=== PATIENT | female | born 1970 | race Caucasian/White ===

== ENCOUNTER 2017-09-13 11:59 | Emergency (ER) | payer OTHER ==
[~2017-09-13] VITALS: Ht 170.2 cm; Wt 84.4 kg
[~2017-09-13 11:59] MED LIST: ABILIFY5 MG ORAL; ATIVAN1 MG ORAL; CEPHALEXIN500 MG ORAL; CIPRO500 MG PO; IBUPROFEN600 MG ORAL; MACROBID 100 M100 MG ORAL; METROGEL-VAGINA70 G1 VAGIN; NITROFURANTOIN100 M2 ORAL; PROZAC10 MG ORAL; TAMIFLU75 MG ORAL; TRAZODONE HCL150 MG ORAL
[2017-09-13] MEDS ORDERED: Phenazopyridine 200mg tab ORAL ONE (12:45)
[2017-09-13 13:03] LABS: APPEARANCE,URINE CLEAR; BILIRUBIN, URINE NEGATIVE (NEGATIVE); GLUCOSE, URINE (UA) NEGATIVE (NEGATIVE); KETONES,URINE NEGATIVE (NEGATIVE); LEUKOCYTE ESTERASE ,URINE 1+ (NEGATIVE); NITRITE,URINE NEGATIVE (NEGATIVE); PH,URINE 7 (4.5-8.0); PROTEIN,URINE NEGATIVE (NEGATIVE); UROBILINOGEN,URINE 1 MG/DL (0.0-1.0)
[2017-09-13 13:08] LABS: COLOR,URINE YELLOW
--- NOTE | 2017-09-13 13:24 | Emergency Room Report ---
History of Present Illness General Chief Complaint: Female Urogenital Problems Source: Patient Present Illness HPI 47-year-old female presents emergency department complaining of dysuria and urinary frequency 3 days. Patient denies fevers or chills. Patient denies vaginal discharge. Pain is 8 out of 10 in severity burning and lower abdominal distention feeling. Patient states she feels as though her bladder is really full however when she goes to the bathroom nothing comes out. Denies CP, Palpitations, LOC, AMS, dizziness, Changes in Vision, Sensation, paresthesias, or a sudden severe headache. Allergies: Coded Allergies: No Known Allergies (Unverified , 10/24/12) Patient History Past Medical History: see triage record Past Surgical History: none Pertinent Family History: none Last Menstrual Period: irregular period Immunizations: UTD Reviewed Nursing Documentation: PMH: Agreed, PSxH: Agreed Nursing Documentation-PMH Past Medical History: No History, Except For History Of Psychiatric Problem: Yes - Anxiety Review of Systems All Other Systems: negative except mentioned in HPI Physical Exam Vital Signs Date Time Temp Pulse Resp B/P (MAP) Pulse Ox O2 Delivery O2 Flow Rate FiO2 09/13/17 12:26 98.4 87 16 108/75 94 Room Air 98.4 Sp02 EP Interpretation: reviewed, normal General Appearance: no apparent distress, alert, GCS 15, non-toxic Head: normocephalic, atraumatic ENT: hearing grossly normal, normal voice Neck: full range of motion Respiratory: lungs clear, normal breath sounds, speaking full sentences Cardiovascular #1: regular rate, rhythm Gastrointestinal: normal bowel sounds, non tender, soft Genitourinary: normal inspection, no CVA tenderness Musculoskeletal: back normal, gait/station normal, normal range of motion, non- tender Neurologic: alert, oriented x3, responsive, motor strength/tone normal, sensory intact, normal gait, speech normal, grossly normal Psychiatric: judgement/insight normal Skin: normal color, no rash, warm/dry, well hydrated Lymphatic: no adenopathy Medical Decision Making PA Attestation Dr. Mooney is my supervising Physician whom patient management has been discussed with. Diagnostic Impression: Primary Impression: Dysuria Additional Impression: Urinary frequency ER Course 47-year-old female presents emergency department complaining of dysuria and urinary frequency 3 days. Patient denies fevers or chills. Patient denies vaginal discharge. Pain is 8 out of 10 in severity burning and lower abdominal distention feeling. Patient states she feels as though her bladder is really full however when she goes to the bathroom nothing comes out. Denies CP, Palpitations, LOC, AMS, dizziness, Changes in Vision, Sensation, paresthesias, or a sudden severe headache. Ddx considered but are not limited to UTi , Pyelo, STI, Stone, Cystitis Vital signs: are WNL, pt. is afebrile H&PE are most consistent with possible UTI or cystitis will do UA.. no evidence to suggest acute abdomen at this time. no CVA tenderness. ORDERS: - UA labs are attached : --Most indicative of contamination: presence of equal amounts of bacteria and squamous cells, no elevation in inflammatory markers, nitrite negative. ED INTERVENTIONS: -Pyridium PO DISCHARGE: At this time pt. is stable for d/c to home. Will provide printed patient care instructions, and any necessary prescriptions. Care plan and follow up instructions have been discussed with the patient prior to discharge. Labs Test 09/13/17 12:29 Urine Color Yellow Urine Appearance Clear Urine pH 7 (4.5-8.0) Urine Specific [place] 1.010 (1.005-1.035) Urine Protein Negative (NEGATIVE) Urine Glucose (UA) Negative (NEGATIVE) Urine Ketones Negative (NEGATIVE) Urine Occult Blood Negative (NEGATIVE) Urine Nitrite Negative (NEGATIVE) Urine Bilirubin Negative (NEGATIVE) Urine Urobilinogen 1 MG/DL (0.0-1.0) Urine Leukocyte Esterase 1+ (NEGATIVE) Urine RBC 0-2 /HPF (0 - 2) Urine WBC 2-4 /HPF (0 - 2) Urine Squamous Epithelial Cells Few /LPF (NONE/OCC) Urine Bacteria Occasional /HPF (NONE) Urine Mucus Few /LPF (NONE/OCC) Urine HCG, Qualitative Negative (NEGATIVE) Last Vital Signs Date Time Temp Pulse Resp B/P (MAP) Pulse Ox O2 Delivery O2 Flow Rate FiO2 09/13/17 12:26 98.4 87 16 108/75 94 Room Air 98.4 Disposition: HOME, SELF-CARE Condition: Stable Scripts Phenazopyridine Hcl* (PYRIDIUM*) 200 Mg Tablet 200 MG ORAL THREE TIMES A DAY for 5 Days, #15 TAB 0 Refills Prov: Jesica Salcedo 09/13/17 Referrals: [facility],REFERRING (PCP) Patient Instructions: Dysuria, Urinary Frequency Additional Instructions: Take medications as directed. Pyridium will cause your urine to change color (Red/[place]), this is a normal side effect of the medication. Follow up with a Primary Care Provider in 3-5 days, even if your symptoms have resolved. --Please review list of primary care clinics, if you do not already have a primary care provider Return sooner to ED if new symptoms occur, or current symptoms become worse. - Please note that this Emergency Department Report was dictated using [employer] claims analyst technology software, occasionally this can lead to erroneous entry secondary to interpretation by the dictation equipment. Jesica Salcedo Sep 13, 2017 13:24
[2017-09-13] MEDS ORDERED: PHENAZOPYRIDIN200 MG ORAL (13:47)
[2017-09-13 14:01] VITALS: BP 116/70
== END 2017-09-13 14:00 | disposition home or self-care (01) ==
LOC: EMR 13:10
DX: R30.0 Dysuria (principal); R35.0 Frequency of micturition; F41.9 Anxiety disorder, unspecified
CPT/HCPCS: 81003; 81025; 99283

== ENCOUNTER 2018-05-15 12:57 | Emergency (ER) | payer OTHER ==
[~2018-05-15] VITALS: Ht 172.7 cm; Wt 73.9 kg
[~2018-05-15 12:57] MED LIST changes: +PHENAZOPYRIDIN200 MG ORAL
[2018-05-15 13:22] VITALS: BP 119/78
[2018-05-15 13:29] LABS: APPEARANCE,URINE SLIGHTLY CLOUDY; BILIRUBIN, URINE NEGATIVE (NEGATIVE); GLUCOSE, URINE (UA) NEGATIVE (NEGATIVE); KETONES,URINE 1+ (NEGATIVE); LEUKOCYTE ESTERASE ,URINE 2+ (NEGATIVE); NITRITE,URINE NEGATIVE (NEGATIVE); PH,URINE 5 (4.5-8.0); PROTEIN,URINE 1+ (NEGATIVE); UROBILINOGEN,URINE 4 MG/DL (0.0-1.0)
--- NOTE | 2018-05-15 13:29 | Emergency Room Report ---
History of Present Illness General Chief Complaint: Female Urogenital Problems Source: Patient Present Illness HPI 48-year-old female patient presents ER complaining of burning with urination and scabies exposure. Patient reports running pain for the past 2 days. Reports frequency and urgency during this time. Denies hematuria. Denies vaginal discharge. Denies flank pain, abdominal pain, fever, vomiting. Also reports itching on her body. Denies rash. Reports that she visited friends house where "everyone has scabies" and she would like to be treated prophylactically. Denies rash currently. Denies fever, chest pain, shortness breath, vomiting, abdominal pain. Allergies: Coded Allergies: No Known Allergies (Unverified , 10/24/12) Patient History Past Medical History: see triage record Last Menstrual Period: 7 yrs ago Reviewed Nursing Documentation: PMH: Agreed; PSxH: Agreed Nursing Documentation-PMH Past Medical History: No History, Except For History Of Psychiatric Problem: No - depression, anxiety Review of Systems All Other Systems: negative except mentioned in HPI Physical Exam Vital Signs Date Time Temp Pulse Resp B/P (MAP) Pulse Ox O2 Delivery O2 Flow Rate FiO2 05/15/18 13:00 99.1 95 18 119/78 99 Room Air Sp02 EP Interpretation: reviewed, normal General Appearance: well appearing, no apparent distress, alert, GCS 15, non- toxic Head: normocephalic, atraumatic Eyes: bilateral eye normal inspection, bilateral eye PERRL ENT: hearing grossly normal, normal pharynx, no angioedema, normal voice, uvula midline, moist mucus membranes Neck: full range of motion Respiratory: lungs clear, normal breath sounds, no rhonchi, no respiratory distress, no accessory muscle use, no wheezing, speaking full sentences Cardiovascular #1: regular rate, rhythm, no edema Gastrointestinal: non tender, soft, no mass, non-distended, no guarding, no rebound Genitourinary: no CVA tenderness Musculoskeletal: back normal, digits/nails normal, gait/station normal, normal range of motion, non-tender Neurologic: alert, oriented x3, responsive, motor strength/tone normal, sensory intact Psychiatric: mood/affect normal Skin: no rash Lymphatic: no adenopathy Medical Decision Making PA Attestation Dr. Ordonez is my supervising Physician whom patient management has been discussed with. Diagnostic Impression: Primary Impression: Urinary tract infection Additional Impression: Scabies exposure ER Course Pt presents to ED c/o pain with urination and possible scabies exposure. 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 VITAL SIGNS are WNL, patient is afebrile. Ordered UA. ER COURSE UA results show many WBCS, indicate UTI, will treat with abx. If concern for STI, followup with STI clinic for testing and treatment. Denies STI concern. Patient is resting comfortably in chair, nontoxic appearing, in no acute distress. Patient states they feel better and is ready to go home. Patient requesting ibuprofen for pain symptoms. ER precautions given. patient with scabies medication. No current signs of rash or infection. ER precautions given. Wash all clothing and bedding in high heat. DISCHARGE -Rx provided for Bactrim. -Rx provided for Permethrin -Rx provided for Ibuprofen Patient is stable for discharge. Patient resting comfortably, in no acute distress, nontoxic appearing, talking without difficulty. Will provide with patient care instructions and any necessary prescriptions. Patient understands and agrees to treatment plan. Patient encouraged to drink plenty of fluids. Patient to take medication as instructed. Care plan and follow-up instructions provided. Patient questions asked and answered. Reports understanding and agreement to treatment plan. Patient instructed to follow-up with primary care provider in 3 - 5 days. ER precautions given. Patient instructed to return to ER immediately for any new or worsening of symptoms. Including but not limited to fever, abdominal pain , intractable vomiting. - Please note that this Emergency Department Report was dictated using [employer] internship technology software, occasionally this can lead to erroneous entry secondary to interpretation by the dictation equipment. Labs Test 05/15/18 13:15 Urine Color Yellow Urine Appearance Slightly cloudy Urine pH 5 (4.5-8.0) Urine Specific [place] 1.025 (1.005-1.035) Urine Protein 1+ (NEGATIVE) Urine Glucose (UA) Negative (NEGATIVE) Urine Ketones 1+ (NEGATIVE) Urine Blood 2+ (NEGATIVE) Urine Nitrite Negative (NEGATIVE) Urine Bilirubin Negative (NEGATIVE) Urine Urobilinogen 4 MG/DL (0.0-1.0) Urine Leukocyte Esterase 2+ (NEGATIVE) Urine RBC 2-4 /HPF (0 - 2) Urine WBC 30-40 /HPF (0 - 2) Urine Squamous Epithelial Cells Occasional /LPF Urine Bacteria Few /HPF (NONE) Urine Mucus Moderate /LPF (NONE/OCC) Last Vital Signs Date Time Temp Pulse Resp B/P (MAP) Pulse Ox O2 Delivery O2 Flow Rate FiO2 05/15/18 13:22 99.1 95 18 119/78 99 Room Air Disposition: HOME, SELF-CARE Condition: Stable Scripts Ibuprofen* (MOTRIN*) 600 Mg Tablet 600 MG ORAL Q8H PRN for For Pain, #30 TAB 0 Refills Prov: Wally Lara 05/15/18 Permethrin* (ELIMITE*) 60 Gm Cream..g. 1 APPLIC TOPIC ONCE, #60 GM 0 Refills Apply cream from head to toe; leave on for 8-14 hours before washing off with water; may reapply in 1 week if live mites appear. Prov: Wally Lara 05/15/18 Trimethoprim/Sulfamethoxazole 160/800* (BACTRIM DS TABLET*) 1 Each Tablet 1 TAB ORAL TWICE A DAY for 7 Days, #14 TAB Prov: Wally Lara 05/15/18 Patient Instructions: Scabies, Pediatric, Urinary Tract Infection Additional Instructions: Followup with primary care provider and followup with and./or OBGYN. Drink plenty of fluids. Take medications as directed. Pyridium has SE of turning urine orange. Patient questions asked and answered. ER precautions given, patient instructed to return to ER immediately for any new or worsening of symptoms. Wally Lara May 15, 2018 13:29
[2018-05-15 13:46] LABS: COLOR,URINE YELLOW
[2018-05-15] MEDS ORDERED: PERMETHRIN60 GM TOPIC (13:50)
[2018-05-15] MEDS ORDERED: BACTRIM DS TAB1 EAC1 ORAL (13:50)
[2018-05-15] MEDS ORDERED: IBUPROFEN600 MG ORAL (14:08)
[2018-05-15 14:36] VITALS: BP 119/78
== END 2018-05-15 14:37 | disposition home or self-care (01) ==
LOC: EMR 13:35
DX: N39.0 Urinary tract infection, site not specified (principal); Z20.89 Contact with and (suspected) exposure to other communicable diseases
CPT/HCPCS: 81003; 87086; 87181; 99283

== ENCOUNTER 2018-05-17 11:59 | Emergency (ER) | payer OTHER ==
[~2018-05-17] VITALS: Ht 172.7 cm; Wt 73.9 kg
[~2018-05-17 11:59] MED LIST changes: +BACTRIM DS TAB1 EAC1 ORAL; +PERMETHRIN60 GM TOPIC
[2018-05-17] MEDS ORDERED: PERMETHRIN60 GM TOPIC (12:28)
[2018-05-17] MEDS ORDERED: BENADRYL25 MG ORAL (12:28)
[2018-05-17] MEDS ORDERED: CLARITIN10 M1 ORAL (12:28)
--- NOTE | 2018-05-17 12:28 | Emergency Room Report ---
History of Present Illness General Chief Complaint: Skin Rash/Abscess Source: Patient Present Illness HPI 48-year-old female patient presents ER requesting refill of scabies medication. Patient was seen here 2 days ago and discharged home with scabies medication for prophylactic use. Reports rash does not appear since that time however she use of lotion and needs a refill of it to repeat the treatment in 1 week. Reports was all her clothes and bedding. Denies other acute symptoms. Denies fever, chest pain, shortness of breath. Allergies: Coded Allergies: No Known Allergies (Unverified , 10/24/12) Patient History Past Medical History: see triage record Last Menstrual Period: age 40 Now: No Reviewed Nursing Documentation: PMH: Agreed; PSxH: Agreed Nursing Documentation-PMH Past Medical History: No Stated History Review of Systems All Other Systems: negative except mentioned in HPI Physical Exam Vital Signs Date Time Temp Pulse Resp B/P (MAP) Pulse Ox O2 Delivery O2 Flow Rate FiO2 05/17/18 12:09 98.2 85 18 110/76 98 Room Air Sp02 EP Interpretation: reviewed, normal General Appearance: well appearing, no apparent distress, alert, GCS 15, non- toxic Head: normocephalic, atraumatic Eyes: bilateral eye normal inspection, bilateral eye PERRL ENT: hearing grossly normal, normal pharynx, no angioedema, normal voice, uvula midline, moist mucus membranes Neck: full range of motion Respiratory: lungs clear, normal breath sounds, no rhonchi, no respiratory distress, no accessory muscle use, no wheezing, speaking full sentences Cardiovascular #1: regular rate, rhythm, no edema Musculoskeletal: back normal, digits/nails normal, gait/station normal, normal range of motion, non-tender Neurologic: alert, oriented x3, responsive, motor strength/tone normal, sensory intact Psychiatric: mood/affect normal Skin: no rash Medical Decision Making PA Attestation Dr. Mooney is my supervising Physician whom patient management has been discussed with. Diagnostic Impression: Primary Impression: Scabies exposure ER Course Pt. presents to the ED requesting refill of scabies medication. Ddx considered but are not limited to atopic dermatitis, bug bite, urticaria, allergic reaction. Vital signs: are WNL, pt. is afebrile ER COURSE: PE benign, no rash noted. will provide patient with refill of permethrin cream. Do not scratch, apply cool compresses to affected area. Take Claritin during the day and Benadryl at night for itching symptoms. Followup [facility] PCP and request referral to derm. ER precautions given. DISCHARGE: -Rx given for Benadryl for pruritis. SE may cause drowsiness. -Rx given for permethrin -Rx given for Claritin At this time pt. is stable for d/c to home. Patient resting comfortably, in no acute distress, nontoxic appearing. Care plan and follow up instructions have been discussed with the patient prior to discharge. Patient provided with printed patient care instructions, and any necessary prescriptions. Patient instructed to follow-up with primary care provider in 3 - 5 days. Patient questions asked and answered. Patient reports understanding and agreement to treatment plan. ER precautions given. Patient instructed to return to ER immediately for any new or worsening of symptoms including but not limited to increasing SOB, persistent fever. - Please note that this Emergency Department Report was dictated using [employer]oc[employer] tram operator technology software, occasionally this can lead to erroneous entry secondary to interpretation by the dictation equipment. Last Vital Signs Date Time Temp Pulse Resp B/P (MAP) Pulse Ox O2 Delivery O2 Flow Rate FiO2 05/17/18 12:09 98.2 85 18 110/76 98 Room Air Disposition: HOME, SELF-CARE Condition: Stable Scripts Diphenhydramine Hcl* (BENADRYL*) 25 Mg Capsule 25 MG ORAL Q6H PRN for Itching, #30 CAP Prov: Wally Lara 05/17/18 Loratadine (CLARITIN) 10 Mg Tab.rapdis 10 MG ORAL DAILY, #30 TAB Prov: Wally Lara 05/17/18 Permethrin* (ELIMITE*) 60 Gm Cream..g. 1 APPLIC TOPIC ONCE, #60 GM 0 Refills Apply cream from head to toe; leave on for 8-14 hours before washing off with water; may reapply in 1 week if live mites appear. Prov: Wally Lara 05/17/18 Patient Instructions: Scabies, Pediatric Additional Instructions: Followup with primary care provider in 3 -5 days. Request referral to dermatology as needed. Do not scratch or itch. Apply cool compresses to affected area. Wash all clothes and bedding. Take medications as directed. SE Benadryl drowsiness, do not take prior to drinking, driving, operating heavy machinery. Take Claritin during the day and Benadryl at night for itching symptoms. Patient questions asked and answered. ER precautions given, patient instructed to return to ER immediately for any new or worsening of symptoms. [facility] [place] [facility] Wally Lara May 17, 2018 12:28
[2018-05-17 13:22] VITALS: BP 110/76
[2018-05-17 13:27] VITALS: BP 110/76
== END 2018-05-17 13:29 | disposition home or self-care (01) ==
LOC: EMR 12:35
DX: R21 Rash and other nonspecific skin eruption (principal); Z20.89 Contact with and (suspected) exposure to other communicable diseases
CPT/HCPCS: 99283

== ENCOUNTER 2018-05-22 09:09 | Emergency (ER) | payer OTHER ==
[~2018-05-22] VITALS: Ht 162.6 cm; Wt 68.0 kg
[~2018-05-22 09:09] MED LIST changes: +BENADRYL25 MG ORAL; +CLARITIN10 M1 ORAL
[2018-05-22] MEDS ORDERED: METROGEL-VAGINA70 G1 VAGIN (09:45)
[2018-05-22 09:52] VITALS: BP_SYST 118; BP_SYST 121; BP_DIAS 76
--- NOTE | 2018-05-22 09:54 | Emergency Room Report ---
History of Present Illness General Chief Complaint: Female Urogenital Problems Source: Patient Present Illness HPI Patient presents reporting that she feels that she has vaginitis Patient reports that she has ongoing itching in her genital region Mild discharge denies any abdominal pain denies any pelvic pain Denies any fevers or chills denies any flank pain Denies any chest pain or shortness of breath patient reports that she is sexually active only with her Denies any rash However the patient was here recently with treatment for scabies Allergies: Coded Allergies: No Known Allergies (Unverified , 10/24/12) Patient History Past Medical History: see triage record Pertinent Family History: none Now: No Reviewed Nursing Documentation: PMH: Agreed; PSxH: Agreed Nursing Documentation-PMH Past Medical History: No Stated History Review of Systems All Other Systems: negative except mentioned in HPI Physical Exam Vital Signs Date Time Temp Pulse Resp B/P (MAP) Pulse Ox O2 Delivery O2 Flow Rate FiO2 05/22/18 09:15 97.9 88 18 118/76 96 Room Air Sp02 EP Interpretation: reviewed, normal General Appearance: well appearing, no apparent distress Head: normocephalic, atraumatic Eyes: bilateral eye PERRL, bilateral eye EOMI ENT: normal pharynx Neck: full range of motion, supple Respiratory: lungs clear Cardiovascular #1: regular rate, rhythm Gastrointestinal: non tender, soft Genitourinary: no CVA tenderness Musculoskeletal: normal inspection, back normal Neurologic: alert, oriented x3, responsive Skin: normal color, no rash Lymphatic: no adenopathy Medical Decision Making Diagnostic Impression: Primary Impression: vaginitis ER Course Patient provides clinical history and report likely consistent with vaginitis, patient was recently treated for UTI, the microbiology appears to be sensitive to all medications Given some of the vaginal discharge patient also treated for vaginitis Referral was made for women[facility] clinic for more extensive pelvic exam and Pap smear and more extensive testing as needed Last Vital Signs Date Time Temp Pulse Resp B/P (MAP) Pulse Ox O2 Delivery O2 Flow Rate FiO2 05/22/18 09:15 97.9 88 18 118/76 96 Room Air Status: unchanged Disposition: HOME, SELF-CARE Condition: Stable Scripts Metronidazole* (METROGEL-VAGINAL*) 70 Gm Gel.w.appl 1 APPL VAGIN EVERY 12 HOURS for 7 Days, #70 GM Prov: Jac France DO 05/22/18 Referrals: [facility],REFERRING (PCP) [facility] Patient Instructions: Vaginitis Additional Instructions: Patient is provided with the discharge instructions notified to follow up with primary doctor in the next 2-3 days otherwise return to the er with any worsening symptoms. Please note that this report is being documented using [employer] technology. This can lead to erroneous entry secondary to incorrect interpretation by the dictating instrument. Jac France DO May 22, 2018 09:54
== END 2018-05-22 09:52 | disposition home or self-care (01) ==
LOC: EMR 09:20
DX: N76.0 Acute vaginitis (principal)
CPT/HCPCS: 99283

== ENCOUNTER 2018-07-25 13:58 | Emergency (ER) | payer OTHER ==
[~2018-07-25] VITALS: Ht 172.7 cm; Wt 73.9 kg
[~2018-07-25 13:58] MED LIST changes: +COLACE100 MG ORAL; +FLUCONAZOLE100 MG ORAL
--- NOTE | 2018-07-25 14:11 | NUR ---
ED Nurse Note: patient came in from home c/o flu like symptoms, sorethoat, generalized body aches, headache x1 week. a/o x4, ambulatory.
[2018-07-25 14:12] VITALS: BP 120/75
--- NOTE | 2018-07-25 14:39 | Emergency Room Report ---
History of Present Illness General Chief Complaint: Flu Like Symptoms Source: Patient Present Illness HPI Patient is a 48-year-old female presented after increased productive cough. Patient reportedly had symptoms for approximate 1 week. She reports having increased congestion as well as sore throat associated with a increased productive cough. Patient is a cigarette smoker she states she is smokes approximately 1 pack a day recently been normally smokes 2 packs a day. She denies any fever. She reportedly has onset of symptoms for 1 week. She denies any leg pain or swelling.. Allergies: Coded Allergies: No Known Allergies (Unverified , 10/24/12) Patient History Past Medical History: see triage record Last Menstrual Period: 6 YEARS Now: No Reviewed Nursing Documentation: PMH: Agreed; PSxH: Agreed Nursing Documentation-PMH Past Medical History: No Stated History Hx Gastrointestinal Problems: Yes - constipation Review of Systems All Other Systems: negative except mentioned in HPI Physical Exam Vital Signs Date Time Temp Pulse Resp B/P (MAP) Pulse Ox O2 Delivery O2 Flow Rate FiO2 07/25/18 14:03 98.8 86 17 120/75 95 Room Air Sp02 EP Interpretation: reviewed, normal General Appearance: normal inspection, well appearing, no apparent distress, alert, GCS 15, non-toxic Head: atraumatic ENT: normal ENT inspection, hearing grossly normal, normal voice Neck: normal inspection, full range of motion, supple, no bony tend Respiratory: normal inspection, no respiratory distress, no retraction, wheezing Cardiovascular #1: regular rate, rhythm, no edema Gastrointestinal: normal inspection, normal bowel sounds, non tender, soft, no guarding, no hernia Genitourinary: no CVA tenderness Musculoskeletal: normal inspection, back normal, normal range of motion Neurologic: normal inspection, alert, oriented x3, responsive, account solutions analyst III-XII nml as tested, motor strength/tone normal, speech normal Psychiatric: normal inspection, judgement/insight normal, mood/affect normal Skin: normal inspection, normal color, no rash Medical Decision Making Diagnostic Impression: Primary Impression: Bronchitis ER Course Patient presented for cough. Differential diagnosis include was not limited to pneumonia, bronchitis, influenza among others. Patient will patient has a benign exam and does not appear to require any further laboratory testing at this time. Patient was noted to have symptoms for 1 week. She was unlikely to benefit from Tamiflu.Chest x-ray 1 view interpreted by me showed normal cardiac size without evident infiltrate.The patient is advised to follow up with primary care doctor in 1-2 days. Patient is advised to return if any worsening condition or if any changes in status that are concerning. This report is dictated with [employer] site technician software which may occasionally lead to discrepancies related to use of this software. Chest X-Ray Diagnostic Results Chest X-Ray Diagnostic Results : Chest X-Ray Ordered: Yes # of Views/Limited/Complete: 1 View Indication: Chest Pain EP Interpretation: Yes PA Xray: Interpretation reviewed Interpretation: no consolidation Impression: No acute disease Electronically Signed by: Electronically signed by Dr. Mike Moore M.D. Last Vital Signs Date Time Temp Pulse Resp B/P (MAP) Pulse Ox O2 Delivery O2 Flow Rate FiO2 07/25/18 14:14 86 17 Room Air 07/25/18 14:12 98.8 120/75 95 Status: improved Disposition: HOME, SELF-CARE Condition: Stable Scripts Guaifenesin* (ADULT WAL-TUSSIN*) 100 Mg/5 Ml Liquid 5 ML ORAL Q4H, #120 ML Prov: Mike Moore MD 07/25/18 Albuterol Sulfate* (ALBUTEROL SULFATE MDI*) 8.5 Gm Hfa.aer.ad 2 PUFF INH Q4H PRN for cough/wheezing, #1 EA 0 Refills Prov: Mike Moore MD 07/25/18 Mike Moore MD Jul 25, 2018 14:39
[2018-07-25] MEDS ORDERED: Albuterol/Ipratropium 3ml neb HHN ONE (14:45)
[2018-07-25] MEDS ORDERED: ALBUTEROL SULF8.5 GM INH (14:59)
[2018-07-25] MEDS ORDERED: ADULT WAL-100 MG/5 M ORAL (14:59)
[2018-07-25 15:03] VITALS: BP 120/75
--- NOTE | 2018-07-25 15:04 | NUR ---
ED Nurse Note: patient received breathing tx, cxr done. Patient is being discharged, cleared by ERMSabine Moore ID band removed. discharge paper/instructions given, explained patient about electronic prescription sent to the designated pharmacy which address written on the instruction paper, patient verbalized understanding. patient ambulated out of ED with steady gait with all belongings.
--- NOTE | 2018-07-25 16:42 | Diagnostic Imaging Report ---
Indication: Extreme shortness of breath Technique: One view of the chest Comparison: none Findings: Lungs and pleural spaces are clear. Heart size is normal Impression: No acute process
== END 2018-07-25 15:05 | disposition home or self-care (01) ==
LOC: EMR 15:00
DX: J40 Bronchitis, not specified as acute or chronic (principal)
CPT/HCPCS: 71045; 94640; 99284; J7620

== ENCOUNTER 2019-06-11 14:08 | Emergency (ER) | payer OTHER ==
[~2019-06-11] VITALS: Ht 170.2 cm; Wt 72.6 kg
[~2019-06-11 14:08] MED LIST changes: +ADULT WAL-100 MG/5 M ORAL; +ALBUTEROL SULF8.5 GM INH
--- NOTE | 2019-06-11 14:45 | NUR ---
ED Nurse Note: Pt walked into ED c/o cough,congestion, and congestion for past week. Pt c/o of lower back pain 7/10 for a week. Pt also has a rash on mid buttocks. No acute distress.
[2019-06-11 14:50] VITALS: BP 110/77
--- NOTE | 2019-06-11 14:52 | Emergency Room Report ---
History of Present Illness General Chief Complaint: Flu Like Symptoms Source: Patient Present Illness HPI 49-year-old female presents with flulike symptoms for 1 day. She reports sore throat, body aches, cough. Denies any fever, vomiting, diarrhea, abdominal pain , headache. Also reports dysuria, low back pain, and frequent urination. Denies hematuria. Denies incontinence or saddle anesthesia. No trauma. Patient also complains of a small rash to her upper buttock area. No drainage. Complains of mild itchiness. Allergies: Coded Allergies: No Known Allergies (Unverified , 10/24/12) Patient History Past Medical History: see triage record Past Surgical History: none Pertinent Family History: none Now: No Reviewed Nursing Documentation: PMH: Agreed; PSxH: Agreed Nursing Documentation-PMH Past Medical History: No Stated History Hx Gastrointestinal Problems: Yes - constipation Review of Systems All Other Systems: negative except mentioned in HPI Physical Exam Vital Signs Date Time Temp Pulse Resp B/P (MAP) Pulse Ox O2 Delivery O2 Flow Rate FiO2 06/11/19 14:20 98.4 91 18 117/77 (90) 95 Room Air Sp02 EP Interpretation: reviewed, normal General Appearance: no apparent distress, alert, GCS 15, non-toxic Head: normocephalic, atraumatic Eyes: bilateral eye normal inspection, bilateral eye PERRL ENT: hearing grossly normal, normal pharynx, no angioedema, normal voice Neck: full range of motion, supple/symm/no masses Respiratory: chest non-tender, lungs clear, normal breath sounds, speaking full sentences Cardiovascular #1: regular rate, rhythm, no edema Cardiovascular #2: 2+ carotid (R), 2+ carotid (L), 2+ radial (R), 2+ radial (L) , 2+ dorsalis pedis (R), 2+ dorsalis pedis (L) Gastrointestinal: normal bowel sounds, non tender, soft, non-distended, no guarding, no rebound Rectal: deferred Genitourinary: normal inspection, no CVA tenderness, other - no incontinence Musculoskeletal: back normal, normal range of motion, calf tenderness, gait/ station normal, non-tender, other - no saddle anesthesia Neurologic: alert, motor strength/tone normal, oriented x3, sensory intact, responsive, speech normal Psychiatric: judgement/insight normal, memory normal, mood/affect normal, no suicidal/homicidal ideation Reflexes: 3+ bicep (R), 3+ bicep (L), 3+ tricep (R), 3+ tricep (L), 3+ knee (R) , 3+ knee (L) Skin: rash, other - small area of dryness and erythema to upper left buttock, no evidence of abscess Lymphatic: no adenopathy Medical Decision Making PA Attestation Dr. Mckinney is my supervising physician whom patient management and care has been discussed with. Diagnostic Impression: Primary Impression: viral syndrome Additional Impression: Dermatitis ER Course Pt. presents to the ED c/o flu like symptoms along with dysuria and a rash. Ddx considered but are not limited to influenza, viral syndrome, pneumonia, bronchitis, dermatitis, herpes zoster, cellulitis, UTI, pyelonephritis, nephrolithiasis. Vital signs: are WNL, pt. is afebrile H&PE are most consistent with viral syndrome and dermatitis. ORDERS: UA shows no evidence of UTI. Other diagnoses are clinical. ED INTERVENTIONS: None required at this time. DISCHARGE: At this time pt. is stable for d/c to home. Will provide printed patient care instructions, and prescriptions for Phenergan DM for her cough, Motrin for low back pain, and hydrocortisone cream for her rash. Care plan and follow up instructions have been discussed with the patient prior to discharge. Return precautions given. Laboratory Tests Test 06/11/19 14:55 Urine Color Yellow Urine Appearance Clear Urine pH 5 (4.5-8.0) Urine Specific [place] 1.015 (1.005-1.035) Urine Protein Negative (NEGATIVE) Urine Glucose (UA) Negative (NEGATIVE) Urine Ketones Negative (NEGATIVE) Urine Blood 1+ (NEGATIVE) H Urine Nitrite Negative (NEGATIVE) Urine Bilirubin Negative (NEGATIVE) Urine Urobilinogen Normal MG/DL (0.0-1.0) Urine Leukocyte Esterase Negative (NEGATIVE) Urine RBC 0-2 /HPF (0 - 2) Urine WBC 0-2 /HPF (0 - 2) Urine Squamous Epithelial Cells Occasional /LPF Urine Bacteria None /HPF (NONE) Urine HCG, Qualitative Negative (NEGATIVE) Last Vital Signs Date Time Temp Pulse Resp B/P (MAP) Pulse Ox O2 Delivery O2 Flow Rate FiO2 06/11/19 14:20 98.4 91 18 117/77 (90) 95 Room Air Disposition: HOME, SELF-CARE Condition: Stable Scripts D-Methorphan Hb/Prometh Hcl* (PROMETHAZINE-DM SYRUP*) 118 Ml Syrup 5 ML ORAL Q4H PRN for For Cough, #120 ML 0 Refills Prov: Soheila Small N. P.A. 06/11/19 Hydrocortisone 1% Oint (Hydrocortisone 1% Oint*) Y Oint 28 GM TP BID for 14 Days, #1 GM Prov: Soheila Small. P.ALex 06/11/19 Ibuprofen* (MOTRIN*) 600 Mg Tablet 600 MG ORAL Q6H PRN for For Pain, #30 TAB Prov: Soheila Small N. P.ALex 06/11/19 Soheila Small P.ALex Jun 11, 2019 14:52
[2019-06-11 15:17] LABS: APPEARANCE,URINE CLEAR; BILIRUBIN, URINE NEGATIVE (NEGATIVE); COLOR,URINE YELLOW; GLUCOSE, URINE (UA) NEGATIVE (NEGATIVE); KETONES,URINE NEGATIVE (NEGATIVE); LEUKOCYTE ESTERASE ,URINE NEGATIVE (NEGATIVE); NITRITE,URINE NEGATIVE (NEGATIVE); PH,URINE 5 (4.5-8.0); PROTEIN,URINE NEGATIVE (NEGATIVE); UROBILINOGEN,URINE NORMAL MG/DL (0.0-1.0)
[2019-06-11] MEDS ORDERED: IBUPROFEN600 MG ORAL (16:04)
[2019-06-11] MEDS ORDERED: HYDROCORTISONE28 G2 TP (16:04)
[2019-06-11] MEDS ORDERED: PROMETHAZINE-D118 ML ORAL (16:04)
[2019-06-11 16:20] VITALS: BP 128/74
--- NOTE | 2019-06-11 16:20 | NUR ---
ER DISCHARGE NOTE: Patient is cleared to be discharged per ERMD, pt is aox4, on room air, with stable vital signs. pt was given dc and prescription instructions, pt was able to verbalize understanding, pt id band removed. pt is able to ambulate with steady gait. pt took all belongings. 3 presc given.
== END 2019-06-11 16:20 | disposition home or self-care (01) ==
LOC: EMR 14:45
DX: B34.9 Viral infection, unspecified (principal); L30.9 Dermatitis, unspecified
CPT/HCPCS: 81003; 81025; Z7502; 99283

== ENCOUNTER 2019-12-06 13:59 | Emergency (ER) | payer OTHER ==
[~2019-12-06] VITALS: Ht 170.2 cm; Wt 77.1 kg
[~2019-12-06 13:59] MED LIST changes: +HYDROCORTISONE28 G2 TP; +PROMETHAZINE-D118 ML ORAL
[2019-12-06 14:39] VITALS: BP 112/72
--- NOTE | 2019-12-06 14:39 | NUR ---
ED Nurse Note: Patient walked into ED from home c/o burning and itchiness while voiding, frequent urinations, back pain for 1 month. patient is alert awake x4 ambulatory steady gait, breathing unlabored and even, speaking in full sentences.
[2019-12-06] MEDS ORDERED: Fluconazole 150mg tab ORAL ONE (15:15)
[2019-12-06] MEDS ORDERED: Cephalexin 500mg cap ORAL ONE (15:15)
--- NOTE | 2019-12-06 15:26 | Emergency Room Report ---
History of Present Illness General Chief Complaint: Female Urogenital Problems Source: Patient Present Illness HPI 49-year-old female with no significant past medical history here complaining of 1 month of urinary frequency and urgency and lower back pain however denies flank pain, nausea vomiting, fever and chills. Patient also complains of vaginal discharge and reports she often gets BV and yeast infection however request MetroGel instead of metronidazole. Is also requesting Motrin for back pain. Is afebrile and vital signs within normal limits. Has not taken medication for symptom relief. Denies chest pain, shortness of breath, headache and dizziness. Allergies: Coded Allergies: No Known Allergies (Unverified , 10/24/12) COVID-19 Screening Contact w/high risk pt: No Recent Travel to affected area: No Experienced COVID-19 symptoms?: No COVID-19 Testing performed TAP OUT OPERATOR: No Patient History Past Medical History: see triage record Past Surgical History: none Pertinent Family History: none Now: No Immunizations: UTD Reviewed Nursing Documentation: PMH: Agreed; PSxH: Agreed Nursing Documentation-PMH Past Medical History: No History, Except For Hx Gastrointestinal Problems: Yes - constipation History Of Psychiatric Problem: Yes - anxiety, Review of Systems All Other Systems: negative except mentioned in HPI Physical Exam Vital Signs Date Time Temp Pulse Resp B/P (MAP) Pulse Ox O2 Delivery O2 Flow Rate FiO2 12/06/19 14:39 98.4 85 17 112/72 (85) 96 Room Air Sp02 EP Interpretation: reviewed, normal General Appearance: no apparent distress, alert, GCS 15, non-toxic Head: normocephalic, atraumatic Eyes: bilateral eye normal inspection, bilateral eye PERRL ENT: hearing grossly normal, normal pharynx, no angioedema, normal voice Neck: full range of motion, supple/symm/no masses Respiratory: chest non-tender, lungs clear, normal breath sounds, speaking full sentences Cardiovascular #1: regular rate, rhythm, no edema Gastrointestinal: normal bowel sounds, non tender, soft, non-distended, no guarding, no rebound Genitourinary: no CVA tenderness Musculoskeletal: back normal Neurologic: alert, motor strength/tone normal, oriented x3, sensory intact, responsive, speech normal Psychiatric: judgement/insight normal, memory normal, mood/affect normal, no suicidal/homicidal ideation Skin: no rash Lymphatic: no adenopathy Medical Decision Making PA Attestation All my diagnosis and treatment plans were reviewed ad discussed with my supervising physician Dr. Moore Diagnostic Impression: Primary Impression: UTI (urinary tract infection) Additional Impression: Vaginitis ER Course 49-year-old female with no significant past medical history here complaining of 1 month of urinary frequency and urgency and lower back pain however denies flank pain, nausea vomiting, fever and chills. Patient also complains of vaginal discharge and reports she often gets BV and yeast infection however request MetroGel instead of metronidazole. Is also requesting Motrin for back pain. Is afebrile and vital signs within normal limits. Has not taken medication for symptom relief. Denies chest pain, shortness of breath, headache and dizziness. Ddx considered but are not limited to: UTI, pyelonephritis, urinary incontinence , prolapsed bladder Vital signs: are WNL, pt. is afebrile H&PE are most consistent with: UTI, vaginitis ORDERS: UA, urine cx, Keflex, Motrin, MetroGel, ED INTERVENTIONS: Diflucan, Motrin, Keflex DISCHARGE: At this time pt. is stable for d/c to home. Will provide printed patient care instructions, and any necessary prescriptions. Care plan and follow up instructions have been discussed with the patient prior to discharge. Patient take medication as directed, follow primary doctor, worsening symptoms return to the emergency room Last Vital Signs Date Time Temp Pulse Resp B/P (MAP) Pulse Ox O2 Delivery O2 Flow Rate FiO2 12/06/19 14:39 98.4 85 17 112/72 96 Room Air Disposition: HOME, SELF-CARE Condition: Stable Scripts Metronidazole* (METROGEL-VAGINAL*) 70 Gm Gel.w.appl 1 APPL VAGIN EVERY 12 HOURS, #70 GM Prov: BestelimoghaOnel storey PA 12/06/19 Ibuprofen* (MOTRIN*) 600 Mg Tablet 600 MG ORAL THREE TIMES A DAY, #30 TAB Prov: BestelimogOnel archer PA 12/06/19 Cephalexin* (KEFLEX*) 500 Mg Capsule 500 MG ORAL EVERY 12 HOURS for 7 Days, #14 CAP 0 Refills Prov: Onel Iniguez PA 12/06/19 Patient Instructions: Vaginitis, Urinary Tract Infection Additional Instructions: Take medication as directed, follow-up primary doctor, if worsening symptoms return to emergency room Onel Iniguez Dec 06, 2019 15:26
[2019-12-06] MEDS ORDERED: METROGEL-VAGINA70 G1 VAGIN (15:28)
[2019-12-06] MEDS ORDERED: IBUPROFEN600 M1 ORAL (15:28)
[2019-12-06] MEDS ORDERED: CEPHALEXIN500 MG ORAL (15:28)
[2019-12-06 15:32] VITALS: BP 112/72
[2019-12-06 15:32] LABS: APPEARANCE,URINE VERY CLOUDY; BILIRUBIN, URINE NEGATIVE (NEGATIVE); COLOR,URINE PALE YELLOW; GLUCOSE, URINE (UA) NEGATIVE (NEGATIVE); KETONES,URINE NEGATIVE (NEGATIVE); LEUKOCYTE ESTERASE ,URINE 3+ (NEGATIVE); NITRITE,URINE POSITIVE (NEGATIVE); PH,URINE 6.5 (4.5-8.0); PROTEIN,URINE NEGATIVE (NEGATIVE); UROBILINOGEN,URINE 1 MG/DL (0.0-1.0)
--- NOTE | 2019-12-06 15:35 | NUR ---
ED Nurse Note: Pt cleared by health care Provider for discharge. DC instructions/prescription was given and explained to pt and verbalized understanding of teachings. All medical deviecs such as ID band removed. Pt is AAO x4, ambulatory and left with all personal belongings.
== END 2019-12-06 15:30 | disposition home or self-care (01) ==
LOC: EMR 15:25
DX: N39.0 Urinary tract infection, site not specified (principal); N76.0 Acute vaginitis; F41.9 Anxiety disorder, unspecified
CPT/HCPCS: 81003; 81025; 87086; 87181; Z7502; 99283

== ENCOUNTER 2020-01-22 10:11 | Emergency (ER) | payer OTHER ==
[~2020-01-22] VITALS: Ht 172.7 cm; Wt 75.3 kg
[~2020-01-22 10:11] MED LIST changes: +IBUPROFEN600 M1 ORAL
--- NOTE | 2020-01-22 10:48 | NUR ---
ED Nurse Note: Pt ambulated to ED from home d/t vaginal with clear dischange and foul odor, dysuria with burning sensation going on for a week. Pt is AOx4, VSS, on RA, afebrile on triage. Placed on bed.
--- NOTE | 2020-01-22 10:50 | NUR ---
ED Nurse Note: ERMD at bedside.
[2020-01-22 11:01] VITALS: BP 143/93
--- NOTE | 2020-01-22 11:01 | NUR ---
ED Nurse Note: urine sent to labs.
[2020-01-22 11:16] LABS: APPEARANCE,URINE CLEAR; BILIRUBIN, URINE NEGATIVE (NEGATIVE); COLOR,URINE PALE YELLOW; GLUCOSE, URINE (UA) NEGATIVE (NEGATIVE); KETONES,URINE NEGATIVE (NEGATIVE); LEUKOCYTE ESTERASE ,URINE NEGATIVE (NEGATIVE); NITRITE,URINE NEGATIVE (NEGATIVE); PH,URINE 6 (4.5-8.0); PROTEIN,URINE NEGATIVE (NEGATIVE); UROBILINOGEN,URINE NORMAL MG/DL (0.0-1.0)
[2020-01-22] MEDS ORDERED: Azithromycin 250mg tab ORAL ONE (11:30)
[2020-01-22] MEDS ORDERED: metroNIDAZOLE 500mg tab ORAL ONE (11:30)
[2020-01-22] MEDS ORDERED: Fluconazole 150mg tab ORAL ONE (11:30)
[2020-01-22] MEDS ORDERED: Lidocaine 1% MPF 10mg/ml 5ml INJ ONE (11:30)
[2020-01-22 12:24] VITALS: BP 146/90
--- NOTE | 2020-01-22 12:24 | NUR ---
ER DISCHARGE NOTE: Patient is cleared to be discharged per ERMD, pt is aox4, on room air, with stable vital signs. pt was given dc and prescription instructions, pt was able to verbalize understanding, pt id band removed. pt is able to ambulate with steady gait. pt took all belongings.
--- NOTE | 2020-01-22 14:38 | Emergency Room Report ---
History of Present Illness General Chief Complaint: Female Urogenital Problems Source: Patient Present Illness HPI Patient presents emergency department today complaining of vaginal discharge. Patient states that she is concerned she might have an STD. She denies any fever nausea vomiting or chills. She does not want a pelvic exam. No other complaints are noted. Symptoms noted to be moderate. No other modifying factors. No other associated signs and symptoms. No other complaints were noted. Allergies: Coded Allergies: No Known Allergies (Unverified , 10/24/12) COVID-19 Screening Contact w/high risk pt: No Recent Travel to affected area: No Experienced COVID-19 symptoms?: No COVID-19 Testing performed ENAMEL APPLIER: No Patient History Past Medical History: none Past Surgical History: none Pertinent Family History: none Social History: Denies: smoking, alcohol use, drug use Last Menstrual Period: no periods since age 37 Reviewed Nursing Documentation: PMH: Agreed; PSxH: Agreed Nursing Documentation-PMH Past Medical History: No History, Except For Hx Gastrointestinal Problems: Yes - constipation History Of Psychiatric Problem: Yes - Anxiety, PTSD Review of Systems All Other Systems: negative except mentioned in HPI Physical Exam Vital Signs Date Time Temp Pulse Resp B/P (MAP) Pulse Ox O2 Delivery O2 Flow Rate FiO2 01/22/20 10:31 97.7 81 14 143/93 (110) 99 Room Air Sp02 EP Interpretation: reviewed, normal General Appearance: normal inspection, well appearing, no apparent distress, alert Head: atraumatic Eyes: bilateral eye normal inspection ENT: normal ENT inspection, hearing grossly normal, normal voice Neck: normal inspection, full range of motion, supple, no bony tend Respiratory: normal inspection, lungs clear, normal breath sounds, no respiratory distress, no retraction, no wheezing Cardiovascular #1: regular rate, rhythm, no edema Gastrointestinal: normal inspection, normal bowel sounds, non tender, soft, no guarding, no hernia Genitourinary: no CVA tenderness Musculoskeletal: normal inspection, back normal, normal range of motion Neurologic: alert, responsive, speech normal, normal inspection Psychiatric: normal inspection, judgement/insight normal, mood/affect normal Skin: no rash Medical Decision Making Diagnostic Impression: Primary Impression: Vaginitis ER Course Patient presents emergency department today complaint vaginal discharge. Differential considerations include UTI, STD, yeast infection just name a few. Given patient presentation and patient's request patient will be given antibiotics. Will treat for possible STD versus vaginitis. Patient is advised to follow up with primary doctor in 2-3 days and return the emergency room for any worsening symptoms and as needed. Labs Test 01/22/20 10:50 Urine Color Pale yellow Urine Appearance Clear Urine pH 6 (4.5-8.0) Urine Specific [place] 1.010 (1.005-1.035) Urine Protein Negative (NEGATIVE) Urine Glucose (UA) Negative (NEGATIVE) Urine Ketones Negative (NEGATIVE) Urine Blood Negative (NEGATIVE) Urine Nitrite Negative (NEGATIVE) Urine Bilirubin Negative (NEGATIVE) Urine Urobilinogen Normal MG/DL (0.0-1.0) Urine Leukocyte Esterase Negative (NEGATIVE) Urine HCG, Qualitative Negative (NEGATIVE) Last Vital Signs Date Time Temp Pulse Resp B/P (MAP) Pulse Ox O2 Delivery O2 Flow Rate FiO2 01/22/20 12:24 97.7 71 16 146/90 100 Room Air Status: improved Disposition: HOME, SELF-CARE Condition: Stable Referrals: NON PHYSICIAN (PCP) Patient Instructions: Andrea Vivas MD Jan 22, 2020 14:38
== END 2020-01-22 12:24 | disposition home or self-care (01) ==
LOC: EMR 11:47
DX: N76.0 Acute vaginitis (principal); F41.9 Anxiety disorder, unspecified
CPT/HCPCS: 81003; 81025; 96372; 96374; J0696; Q0144; Z7502; 99284